=== PATIENT | male | born 1940 | race Caucasian/White ===

== ENCOUNTER → 2016-11-12 | Outpatient (CLI) | payer MEDICARE, OTHER ==
[~2016-11-12] MED LIST: ADV1DS IH; ASP81TEC PO; CALC-656 PO; CLOP75TA PO; DARI7.5T8 PO; FLUT1DIS26 IH; IBUP-30 PO; MULT-974 PO; NEBI20TA2 PO; NFNEB10T PO; OMEG-12 PO; PNT40TEC PO; PRAV10TA PO; SILO8CAP PO; VALS1TAB15 PO; VALS320T8 PO; calcium PO; multi-vitamines PO
--- OUTSIDE RECORDS SUMMARY | 2016-11-12 11:06 | XMS REPORT | Continuity of Care Document ---
Author Author [facility] Organization [facility] Address Unknown Phone Unavailable Support Name Relationship Address Phone MARLENE SIMON MD Caregiver [address] [place] [address] DOROTEO SMART Next Of Kin [address] [place] [address] Insurance Providers Payer Name Policy Number Subscriber Name Relationship Wps Medicare [id number] Pritesh Smart 18 Self / Same As Patient Comm Crossover Enter Ins Name [id number] Pritesh Smart 18 Self / Same As Patient Advance Directives Directive Response Recorded Date/Time Advance Directives Yes 05/13/14 11:53am Health Care Power of Airfield Services Officer Yes 05/13/14 11:53am Organ Donor No 05/13/14 11:53am Problems No known problems or medical conditions. Medications Medication Dose Route Sig Days/Qty Instructions Order Date Discontinued Date Status Silodosin 8 Mg PO DAILY 05/31/12 06/30/12 Discontinued [multi-vitamines] PO DAILY 05/31/12 05/10/14 Discontinued [calcium] PO DAILY 05/31/12 05/10/14 Discontinued Darifenacin 1 Each PO DAILY 06/30/12 05/09/14 Discontinued Aspirin 81 Mg PO DAILY 06/30/12 Active Ibuprofen 200 Mg PO NEEDED 06/30/12 05/09/14 Discontinued Clopidogrel Bisulfate 75 Mg PO DAILY 07/20/12 Active HCTZ/Valsartan 1 Each PO DAILY 07/20/12 Active Nebivolol Hcl 10 Mg PO DAILY 07/20/12 05/09/14 Discontinued Pantoprazole Sod 40 Mg PO DAILY 07/20/12 Active [place]-3/Dha/Epa/Fish Oil 1,000 Mg PO DAILY 05/09/14 Active Salmeterol Xinafoate/Fluticasone 1 Puff IH TWICE A DAY 1 PUFF 05/09/14 05/10/14 Discontinued Pravastatin Sodium 20 Mg PO BEDTIME 05/09/14 Active Multivitamin 1 Tab PO DAILY 05/10/14 Active Calcium Carbonate/Vitamin D3 1 Tab PO DAILY 05/10/14 Active Salmeterol Xinafoate/Fluticasone 1 [place] IH EVERY 12 HOURS 1 Qty Active Social History No social history. Hospital Discharge Instructions No hospital discharge instructions. Plan of Care No plan of care. Functional Status No functional status results. Allergies, Adverse Reactions, Alerts Allergen Type Severity Reaction Status Last Updated No Known Drug Allergies Active 06/01/12 Immunizations No immunization records. Vital Signs No known vital signs results. Results No known relevant diagnostic tests, laboratory data and/or discharge summary. Procedures No known history of procedures. Encounters Encounter Location Date/Time Registered Clinic [facility] 12/02/14 8:07pm
--- NOTE | 2016-11-14 12:04 | ECHOCARDIOGRAPHY REPORT ---
PROCEDURE PHYSICIAN: ROGERS MALCOLM DATE OF PROCEDURE: 11/12/2016 TWO DIMENSIONAL ECHOCARDIOGRAM REPORT PRIMARY PHYSICIAN: OTHER PHYSICIAN: REFERRING PHYSICIAN: Dr. Vanadna Guerra ORDERING PHYSICIAN: INDICATION FOR THE PROCEDURE: Hypertension MEASUREMENTS DERIVED VALUES LV DIAMETER (LAX) NORMALS NORMALS Diastolic 4.3 (3.6-5.2) Eject. Fract. 60% (60%+/-6%) Systolic (2.3-3.9) Diastolic Vol. % Shortening (0.22-0.42) Systolic Vol. Aortic Root IVS THICKNESS Diastolic 1.1 (0.6-1.1) LVPW THICKNESS Diastolic 1. (0.6-1.1) LA DIAMETER Systolic 2.7 (2.1-3.7) FINDINGS: 1. Technical quality is good. 2. The left ventricle is normal in size with normal contractility. Systolic function appeared to be normal. Estimated ejection fraction 60%. 3. The left atrium is normal in size. No clot or thrombus were seen within the left atrium. 4. The right atrium and right ventricle are prominent. No clot or thrombus were seen within the right side. 5. Mitral valve is normal in morphology with mild mitral regurgitation noted by color Doppler flow. No mitral valve prolapse. No mitral valve stenosis. 6. Aortic valve is trileaflet with normal opening and closing pattern. No significant aortic stenosis or regurgitation was seen. 7. Tricuspid valve is normal in morphology with mild tricuspid regurgitation noted by color Doppler flow. Doppler across tricuspid valve estimated pulmonary artery pressure of 43+ right atrial pressure. 8. Pulmonic valve is functioning normally. 9. No pericardial effusion. CONCLUSION: 1. Normal left ventricular size and systolic function. Estimated ejection fraction 60%. 2. Prominent right heart chambers with pulmonary hypertension. Estimated pulmonary artery pressure of 50 mmHg. 3. Mild mitral and tricuspid regurgitation. Job ID: [id number] Dictated Date: 11/13/2016 08:56:31 Still Operator [place] Date: 11/14/2016 11:57:10 / joe
== END ==
LOC: CARD 11:02
PROVIDERS: ATTEND Internal Medicine Cardiovascular Disease
DX: I10 Essential (primary) hypertension (principal); I70.1 Atherosclerosis of renal artery; R06.02 Shortness of breath; I65.23 Occlusion and stenosis of bilateral carotid arteries
CPT/HCPCS: 93306

== ENCOUNTER → 2018-09-18 | Outpatient (CLI) | payer MEDICARE, OTHER | LOC: CARD 11:24 | PROVIDERS: ATTEND Internal Medicine Cardiovascular Disease | DX: R06.09 Other forms of dyspnea (principal); I11.9 Hypertensive heart disease without heart failure; I70.1 Atherosclerosis of renal artery; R09.89 Other specified symptoms and signs involving the circulatory and respiratory systems; I07.1 Rheumatic tricuspid insufficiency | CPT/HCPCS: 93306 ==

== ENCOUNTER 2019-05-15 06:29 | Inpatient (IN) | payer MEDICARE, OTHER | END 2019-05-21 20:25 | disposition E | LOC: 4TH 05-21 16:16 → ER 06:29 → ICU 08:18 | PROC: 5A1945Z Respiratory Ventilation, 24-96 Consecutive Hours (ICD-10-PCS; principal; 2019-05-15) | PROC: 0BH17EZ Insertion of Endotracheal Airway into Trachea, Via Natural or Artificial Opening (ICD-10-PCS; 2019-05-15) | PROC: 0B9D8ZX Drainage of Right Middle Lung Lobe, Via Natural or Artificial Opening Endoscopic, Diagnostic (ICD-10-PCS; 2019-05-16) | PROC: 0BDD8ZX Extraction of Right Middle Lung Lobe, Via Natural or Artificial Opening Endoscopic, Diagnostic (ICD-10-PCS; 2019-05-16) | PROC: 0B938ZX Drainage of Right Main Bronchus, Via Natural or Artificial Opening Endoscopic, Diagnostic (ICD-10-PCS; 2019-05-16) | PROC: 0B978ZX Drainage of Left Main Bronchus, Via Natural or Artificial Opening Endoscopic, Diagnostic (ICD-10-PCS; 2019-05-16) | DX: J96.01 Acute respiratory failure with hypoxia (principal); J96.21 Acute and chronic respiratory failure with hypoxia; A41.9 Sepsis, unspecified organism; J18.9 Pneumonia, unspecified organism; J84.10 Pulmonary fibrosis, unspecified; I95.9 Hypotension, unspecified; T42.75XA Adverse effect of unspecified antiepileptic and sedative-hypnotic drugs, initial encounter; Z66 Do not resuscitate; Z99.81 Dependence on supplemental oxygen; Z79.52 Long term (current) use of systemic steroids; Z96.0 Presence of urogenital implants; Z96.641 Presence of right artificial hip joint; Z96.612 Presence of left artificial shoulder joint ==